=== PATIENT | female | born 1945 | race Caucasian/White ===

== ENCOUNTER 2017-09-23 15:20 | Emergency (ER) | payer OTHER ==
[~2017-09-23] VITALS: Ht 152.4 cm; Wt 55.0 kg
[~2017-09-23 15:20] MED LIST: CARV3.125 PO; ISOS30TA17 PO; KCL20 PO; LISI5 PO; PRAV10 PO
[2017-09-23 15:22] VITALS: BP 163/72; PULSE 82; RESP 18; TEMP 98; O2SAT 97
[2017-09-23] MEDS ORDERED: PRAV10TA PO (15:48)
[2017-09-23] MEDS ORDERED: POTA-163 PO (15:48)
[2017-09-23] MEDS ORDERED: LISI-519 PO (15:48)
[2017-09-23] MEDS ORDERED: ISOS30TA17 PO (15:48)
[2017-09-23] MEDS ORDERED: CARV3.12 PO (15:48)
--- NOTE | 2017-09-23 17:06 | RADRPT ---
EXAM DATE/TIME: 09/23/2017 16:38 [facility] COMPARISON: CHEST SINGLE AP, March 26, 2015, 5:43. INDICATIONS : Cough and flu like symptoms. MEDICAL HISTORY : None. SURGICAL HISTORY : None. ENCOUNTER: Initial ACUITY: 3 days PAIN SCORE: 0/10 LOCATION: Bilateral chest FINDINGS: A single view of the chest demonstrates the lungs to be symmetrically aerated without evidence of mas s, infiltrate or effusion. The cardiomediastinal contours are unremarkable. Osseous structures are intact. CONCLUSION: No acute disease. Eric Ricardo MD on September 23, 2017 at 17:04 Board Certified Radiologist. This report was verified electronically.
[2017-09-23 17:10] LABS: AMORPHOUS SEDIMENT, URINE RARE; BACTERIA, URINE RARE /hpf; BILIRUBIN, URINE NEG (NEG); BLOOD, URINE NEG (NEG); GLUCOSE,URINE NEG (NEG); KETONE, URINE NEG (NEG); NITRITE,URINE NEG (NEG); PH, URINE 6.5 (5.0-8.5); SQUAMOUS EPITHELIAL CELL URINE 1 /hpf (0-5); URINE COLOR LIGHT-YELLOW (YELLW/STRAW); URINE LEUKOCYTE ESTERASE LARGE (NEG)
[2017-09-23 17:12] LABS: AUTOMATED NEUTROPHIL # 1.8 TH/MM3 (1.8-7.7); BASOPHIL % 0.6 % (0.0-2.0); EOSINOPHIL # 0.3 TH/MM3 (0-0.4); EOSINOPHIL % 5.1 % (0.0-4.0); HEMATOCRIT 32.8 % (35.0-46.0); LYMPH % 48.4 % (9.0-44.0); LYMPHOCYTE # 2.4 TH/MM3 (1.0-4.8); MEAN CELL VOLUME 84.7 FL (80.0-100.0); MEAN CORPUSCULAR HEMOGLOBIN 28.5 PG (27.0-34.0); MEAN CORPUSCULAR HGB CONC 33.6 % (32.0-36.0); MONO % 9.8 % (0.0-8.0); MONOCYTE # 0.5 TH/MM3 (0-0.9); NEUT % 36.1 % (16.0-70.0); PLATELET COUNT 188 TH/MM3 (150-450); RED BLOOD COUNT 3.87 MIL/MM3 (4.00-5.30); RED CELL DISTRIBUTION WIDTH 14.2 % (11.6-17.2)
[2017-09-23 17:29] LABS: BICARBONATE 26.8 MEQ/L (21.0-32.0); BLOOD UREA NITROGEN 16 MG/DL (7-18); CALCIUM 8.5 MG/DL (8.5-10.1); CHLORIDE 109 MEQ/L (98-107); CREATININE 0.75 MG/DL (0.50-1.00); GLOMERULAR FILTRATION RATE 76 ML/MIN (>89); GLUCOSE,RANDOM 93 MG/DL (74-106); SODIUM (NA) 142 MEQ/L (136-145)
[2017-09-23 17:34] LABS: TROPONIN I LESS THAN 0.02 NG/ML (0.02-0.05)
[2017-09-23] MEDS ORDERED: BACT800T5 PO (18:56)
--- NOTE | 2017-09-23 18:58 | PD ---
HPI Chief Complaint: Respiratory Symptoms Time Seen by Provider: 16:22 Travel History International Travel<30 days: No Contact w/Intl Traveler<30days: No Traveled to known affect area: No History of Present Illness HPI 72-year-old female patient presents emergency department for evaluation of cough and nasal congestion 1 week. Patient states the cough is not productive. Patient denies any fever, chills, malaise. Patient states she thinks she might have the flu. She presents to the emergency department with her who is here for similar complaints. They have family visiting from [place] pending stay may have gotten them sick. Patient denies any abdominal pain, nausea, vomiting, diarrhea. PFSH Past Medical History Asthma: No Blood Disorders: No Anxiety: No Depression: No Heart Rhythm Problems: No Cancer: No Cardiomyopathy: Yes (LEAKY VALVE) Cardiovascular Problems: Yes High Cholesterol: Yes Chemotherapy: No Chest Pain: No Congestive Heart Failure: No COPD: No Diabetes: No Diminished Hearing: No Endocrine: No Genitourinary: No Immune Disorder: No Musculoskeletal: No Neurologic: Yes Psychiatric: No Reproductive: No Respiratory: No Immunizations Current: Yes Radiation Therapy: No Sleep Apnea: No Thyroid Disease: No Menopausal: Yes Past Surgical History Section: Yes (X3) Social History Alcohol Use: No Tobacco Use: No Substance Use: No Allergies-Medications (Allergen,Severity, Reaction): Coded Allergies: No Known Allergies (Unverified Adverse Reaction, Unknown, 09/23/17) Reported Meds & Prescriptions Reported Meds & Active Scripts Active Bactrim DS (Sulfamethoxazole-Trimethoprim) 800-160 Mg Tab 1 Tab PO BID 7 Days Reported Potassium Chloride ER (Potassium Chloride) 20 Meq Tab 20 Meq PO DAILY Pravastatin 10 Mg Tab 10 Mg PO DAILY Lisinopril 5 Mg Tab 5 Mg PO DAILY Isosorbide Dinitrate 30 Mg Tab 30 Mg PO DAILY Carvedilol 3.125 Mg Tab 3.125 Mg PO BID Review of Systems Except as stated in HPI: all other systems reviewed are Neg Physical Exam Narrative GENERAL: Well-nourished, well-developed 72-year-old female patient in no acute distress. Nontoxic appearing. SKIN: Focused skin assessment warm/dry. HEAD: Normocephalic. Atraumatic EYES: No scleral icterus. No injection or drainage. NECK: Supple, trachea midline. No JVD or lymphadenopathy. CARDIOVASCULAR: Regular rate and rhythm without murmurs, gallops, or rubs. RESPIRATORY: Breath sounds equal bilaterally. No accessory muscle use. GASTROINTESTINAL: Abdomen soft, non-tender, nondistended. MUSCULOSKELETAL: No cyanosis, or edema. BACK: Nontender without obvious deformity. No CVA tenderness. Data Data Last Documented VS Vital Signs Date Time Temp Pulse Resp B/P (MAP) Pulse Ox O2 Delivery O2 Flow Rate FiO2 09/23/17 19:15 09/23/17 16:44 Room Air 09/23/17 15:41 18 09/23/17 15:22 98.0 82 97 Orders Orders Complete Blood Count With Diff (09/23/17 16:22) Basic Metabolic Panel (Bmp) (09/23/17 16:22) Ckmb (Isoenzyme) Profile (09/23/17 16:22) Troponin I (09/23/17 16:22) Urinalysis - C+S If Indicated (09/23/17 16:22) Influenzae A/B Antigen (09/23/17 16:22) Iv Access Insert/Monitor (09/23/17 16:22) Electrocardiogram (09/23/17 16:22) Ecg Monitoring (09/23/17 16:22) Oximetry (09/23/17 16:22) Chest, Single Ap (09/23/17 16:22) Urine Culture (09/23/17 16:00) CKMB (09/23/17 16:40) CKMB% (09/23/17 16:40) Ed Discharge Order (09/23/17 18:58) Labs Laboratory Tests Test 09/23/17 16:00 09/23/17 16:40 Urine Color LIGHT-YELLOW Urine Turbidity CLEAR Urine pH 6.5 Urine Specific [place] 1.012 Urine Protein NEG mg/dL Urine Glucose (UA) NEG mg/dL Urine Ketones NEG mg/dL Urine Occult Blood NEG Urine Nitrite NEG Urine Bilirubin NEG Urine Urobilinogen LESS THAN 2.0 MG/DL Urine Leukocyte Esterase LARGE Urine RBC 1 /hpf Urine WBC 21 /hpf Urine Squamous Epithelial Cells 1 /hpf Urine Amorphous Sediment RARE Urine Bacteria RARE /hpf Microscopic Urinalysis Comment CULTURE INDICATED White Blood Count 5.0 TH/MM3 Red Blood Count 3.87 MIL/MM3 Hemoglobin 11.0 GM/DL Hematocrit 32.8 % Mean Corpuscular Volume 84.7 FL Mean Corpuscular Hemoglobin 28.5 PG Mean Corpuscular Hemoglobin Concent 33.6 % Red Cell Distribution Width 14.2 % Platelet Count 188 TH/MM3 Mean Platelet Volume 10.0 FL Neutrophils (%) (Auto) 36.1 % Lymphocytes (%) (Auto) 48.4 % Monocytes (%) (Auto) 9.8 % Eosinophils (%) (Auto) 5.1 % Basophils (%) (Auto) 0.6 % Neutrophils # (Auto) 1.8 TH/MM3 Lymphocytes # (Auto) 2.4 TH/MM3 Monocytes # (Auto) 0.5 TH/MM3 Eosinophils # (Auto) 0.3 TH/MM3 Basophils # (Auto) 0.0 TH/MM3 CBC Comment DIFF FINAL Differential Comment Blood Urea Nitrogen 16 MG/DL Creatinine 0.75 MG/DL Random Glucose 93 MG/DL Calcium Level 8.5 MG/DL Sodium Level 142 MEQ/L Potassium Level 4.2 MEQ/L Chloride Level 109 MEQ/L Carbon Dioxide Level 26.8 MEQ/L Anion Gap 6 MEQ/L Estimat Glomerular Filtration Rate 76 ML/MIN Total Creatine Kinase 178 U/L Creatine Kinase MB 1.4 NG/ML Troponin I LESS THAN 0.02 NG/ML MDM Medical Decision Making Medical Screen Exam Complete: Yes Emergency Medical Condition: Yes Differential Diagnosis Differential diagnoses include but are not limited to influenza, viral syndrome , pharyngitis, pneumonia, UTI Narrative Course Patient placed on monitor, IV obtained and blood work sent to lab. CBC, BMP, troponin, CK MB UA, influenza ordered and pending. 12-lead EKG ordered and pending. Chest x-ray ordered and pending. Blood work shows no acute abnormality. Chest x-ray shows no acute disease. Twelve-lead EKG sinus rhythm. Influenza is negative. Urinalysis shows WBCs, high bacteria, leukocyte esterase. Patient discharged home with prescription for Bactrim for urinary tract infection. Patient given instructions to return the emergency Department with any worsening condition but otherwise follow-up with primary care. Diagnosis Primary Impression: UTI (urinary tract infection) Qualified Codes: N39.0 - Urinary tract infection, site not specified Referrals: Primary Care Physician Patient Instructions: General Instructions, Urinary Tract Infection in Women ( [place]) Additional Instructions: Please return to emergency department if your symptoms return or worsen. Follow up with your primary care provider. Take medications as prescribed. Stay hydrated Alternate ibuprofen and Tylenol as needed for pain or fever. Med/Other Pt SpecificInfo: Prescription(s) given Scripts Sulfamethoxazole-Trimethoprim (Bactrim DS) 800-160 Mg Tab 1 TAB PO BID for Infection for 7 Days, #14 TAB 0 Refills Prov: Emma Schuster 09/23/17 Disposition: 01 DISCHARGE HOME Condition: Stable Emma Schuster Sep 23, 2017 18:57
--- NOTE | 2017-09-25 12:12 | EKG ---
Date Performed: 09/23/2017 Time Performed: 17:07:59 PTAGE: 72 years EKG: Sinus rhythm LEFT BUNDLE BRANCH BLOCK ABNORMAL ECG PREVIOUS TRACING : 03/26/2015 17.37 DOCTOR: Glendy Hays Interpretating Date/Time 09/25/2017 12:12:08
== END 2017-09-23 19:28 | disposition home or self-care (01) ==
LOC: NEPC 15:20
DX: N39.0 Urinary tract infection, site not specified (principal); B96.89 Other specified bacterial agents as the cause of diseases classified elsewhere; R05 Cough; R94.31 Abnormal electrocardiogram [ECG] [EKG]; E78.00 Pure hypercholesterolemia, unspecified
CPT/HCPCS: 71010; 80048; 81001; 82550; 82552; 84484; 85025; 87086; 87804; 93005; 99285

== ENCOUNTER 2018-02-05 10:49 | Emergency (ER) | payer OTHER ==
[~2018-02-05] VITALS: Ht 144.8 cm; Wt 60.0 kg
[~2018-02-05 10:49] MED LIST changes: +BACT800T5 PO; +CARV3.12 PO; -CARV3.125 PO; -KCL20 PO; +LISI-519 PO; -LISI5 PO; +POTA-163 PO; -PRAV10 PO; +PRAV10TA PO
[2018-02-05 10:51] VITALS: BP 165/77; PULSE 79; RESP 16; TEMP 98.4; O2SAT 99
[2018-02-05] MEDS ORDERED: ONDANSETRON HCL 4 MG/2 ML VIAL IV PUSH ONE (11:30)
[2018-02-05] MEDS ORDERED: MECLIZINE HCL 25 MG TAB PO ONE (11:30)
--- NOTE | 2018-02-05 11:33 | PD ---
HPI Chief Complaint: Dizziness Time Seen by Provider: 11:11 Travel History International Travel<30 days: No Contact w/Intl Traveler<30days: No Traveled to known affect area: No History of Present Illness HPI 73-year-old female that presents to the ED for evaluation of dizziness and nausea. Patient states that she had this today. Per patient she woke up today at her normal breakfast and went to pray when he laid her head down to pressure started feeling like the room was spinning and she started throwing up. She has been having that ever since. She has had this for at least 2-3 hours. Per patient she feels nauseous but not vomiting anymore. Per patient currently she has no pain. Per patient she is never had any pain. No blurred vision or double vision. No headache. No chest pain or shortness of breath. No abdominal pain. Per patient she has questions what she took something yesterday might upset her stomach. Denies any history of this in the past. She does have a history of heart disease as well as CHF. No palpitations. No allergies to medication. Per patient no blood when she vomits. She came here by private vehicle. Denies any falls or injuries. Per patient symptoms appear to be positional and currently appeared to be improve as she feels nauseous but she has nothing else to throw up. PFSH Past Medical History Asthma: No Blood Disorders: No Anxiety: No Depression: No Heart Rhythm Problems: No Cancer: No Cardiomyopathy: Yes (LEAKY VALVE) Cardiovascular Problems: Yes High Cholesterol: Yes Chemotherapy: No Chest Pain: No Congestive Heart Failure: No COPD: No Diabetes: No Diminished Hearing: No Endocrine: No Genitourinary: No Immune Disorder: No Musculoskeletal: No Neurologic: Yes Psychiatric: No Reproductive: No Respiratory: No Immunizations Current: Yes Radiation Therapy: No Sleep Apnea: No Thyroid Disease: No Menopausal: Yes Past Surgical History Section: Yes (X3) Social History Alcohol Use: No Tobacco Use: No Substance Use: No Allergies-Medications (Allergen,Severity, Reaction): Coded Allergies: No Known Allergies (Unverified Adverse Reaction, Unknown, 02/05/18) Reported Meds & Prescriptions Reported Meds & Active Scripts Active Meclizine (Meclizine HCl) 25 Mg Tab 25 Mg PO TID PRN Ativan (Lorazepam) 0.5 Mg Tab 0.5 Mg PO Q6H PRN Reported Atorvastatin (Atorvastatin Calcium) 80 Mg Tab 80 Mg PO HS Gabapentin 300 Mg Cap 300 Mg PO BID Furosemide 40 Mg Tab 40 Mg PO DAILY Isosorbide Mononitrate ER (Isosorbide Mononitrate) 30 Mg Annie 30 Mg PO DAILY Potassium Chloride ER (Potassium Chloride) 20 Meq Tab 20 Meq PO DAILY Lisinopril 5 Mg Tab 2.5 Mg PO DAILY Carvedilol 3.125 Mg Tab 3.125 Mg PO BID Review of Systems Except as stated in HPI: all other systems reviewed are Neg Physical Exam Narrative GENERAL: SKIN: Warm and dry. HEAD: Atraumatic. Normocephalic. EYES: Pupils equal and round. No scleral icterus. No injection or drainage. ENT: No nasal bleeding or discharge. Mucous membranes pink and moist. Tongue is midline. No uvula deviation. NECK: Trachea midline. No JVD. CARDIOVASCULAR: Regular rate and rhythm. No murmurs, S3, S4. RESPIRATORY: No accessory muscle use. Clear to auscultation. Breath sounds equal bilaterally. GASTROINTESTINAL: Abdomen soft, non-tender, nondistended. Hepatic and splenic margins not palpable. MUSCULOSKELETAL: Extremities without clubbing, cyanosis, or edema. No obvious deformities. Full range of motion of the upper and lower extremities bilaterally. 2+ pulses bilaterally. NEUROLOGICAL: Awake and alert. No obvious cranial nerve deficits. Motor grossly within normal limits. Five out of 5 muscle strength in the arms and legs. Normal speech. PSYCHIATRIC: Appropriate mood and affect; insight and judgment normal. Data Data Last Documented VS Vital Signs Date Time Temp Pulse Resp B/P (MAP) Pulse Ox O2 Delivery O2 Flow Rate FiO2 02/05/18 13:10 62 12 139/64 (89) 72 21 165/80 (108) 73 19 156/74 (101) 02/05/18 10:51 98.4 99 Orders Orders Electrocardiogram (02/05/18 11:19) Complete Blood Count With Diff (02/05/18 11:19) Comprehensive Metabolic Panel (02/05/18 11:19) Ckmb (Isoenzyme) Profile (02/05/18 11:19) Troponin I (02/05/18 11:19) Lipase (02/05/18 11:19) Urinalysis - C+S If Indicated (02/05/18 11:19) Magnesium (Mg) (02/05/18 11:19) Thyroid Stimulating Hormone (02/05/18 11:19) Chest, Single Ap (02/05/18 11:19) Ct Brain W/O Iv Contrast(Rout) (02/05/18 11:19) Iv Access Insert/Monitor (02/05/18 11:19) Ecg Monitoring (02/05/18 11:19) Oximetry (02/05/18 11:19) Orthostatic Vital Signs (02/05/18 11:19) Ondansetron Inj (Zofran Inj) (02/05/18 11:30) Meclizine (Antivert) (02/05/18 11:30) Lorazepam Inj (Ativan Inj) (02/05/18 13:30) CKMB (02/05/18 12:40) CKMB% (02/05/18 12:40) Ed Discharge Order (02/05/18 14:43) Ed Discharge Order (02/05/18 14:44) Labs Laboratory Tests Test 02/05/18 11:12 02/05/18 12:40 02/05/18 12:45 White Blood Count 6.5 TH/MM3 Red Blood Count 4.59 MIL/MM3 Hemoglobin 12.8 GM/DL Hematocrit 38.0 % Mean Corpuscular Volume 82.6 FL Mean Corpuscular Hemoglobin 27.9 PG Mean Corpuscular Hemoglobin Concent 33.7 % Red Cell Distribution Width 15.9 % Platelet Count 323 TH/MM3 Mean Platelet Volume 10.0 FL Neutrophils (%) (Auto) 82.1 % Lymphocytes (%) (Auto) 12.4 % Monocytes (%) (Auto) 3.7 % Eosinophils (%) (Auto) 1.4 % Basophils (%) (Auto) 0.4 % Neutrophils # (Auto) 5.4 TH/MM3 Lymphocytes # (Auto) 0.8 TH/MM3 Monocytes # (Auto) 0.2 TH/MM3 Eosinophils # (Auto) 0.1 TH/MM3 Basophils # (Auto) 0.0 TH/MM3 CBC Comment AUTO DIFF Differential Comment AUTO DIFF CONFIRMED Ovalocytes 1+ Blood Urea Nitrogen 20 MG/DL Creatinine 0.68 MG/DL Random Glucose 110 MG/DL Total Protein 7.6 GM/DL Albumin 3.6 GM/DL Calcium Level 8.3 MG/DL Magnesium Level 2.2 MG/DL Alkaline Phosphatase 96 U/L Aspartate Amino Transf (AST/SGOT) 39 U/L Alanine Aminotransferase (ALT/SGPT) 46 U/L Total Bilirubin 0.5 MG/DL Sodium Level 141 MEQ/L Potassium Level 4.3 MEQ/L Chloride Level 108 MEQ/L Carbon Dioxide Level 26.4 MEQ/L Anion Gap 7 MEQ/L Estimat Glomerular Filtration Rate 85 ML/MIN Total Creatine Kinase 146 U/L Creatine Kinase MB 0.9 NG/ML Troponin I LESS THAN 0.02 NG/ML Lipase 109 U/L Thyroid Stimulating Hormone 3rd Gen 0.638 uIU/ML Urine Color YELLOW Urine Turbidity HAZY Urine pH 6.0 Urine Specific [place] 1.029 Urine Protein 30 mg/dL Urine Glucose (UA) NEG mg/dL Urine Ketones TRACE mg/dL Urine Occult Blood NEG Urine Nitrite NEG Urine Bilirubin NEG Urine Urobilinogen LESS THAN 2.0 MG/DL Urine Leukocyte Esterase TRACE Urine RBC 2 /hpf Urine WBC 4 /hpf Urine Squamous Epithelial Cells 1 /hpf Urine Transitional Epithelial Cells <1 /hpf Urine Hyaline Casts 2 /lpf Urine Mucus MANY /lpf Microscopic Urinalysis Comment CULT NOT INDICATED MDM Medical Decision Making Medical Screen Exam Complete: Yes Emergency Medical Condition: Yes Medical Record Reviewed: Yes Interpretation(s) CBC & BMP Diagram 02/05/18 11:12 02/05/18 12:40 Total Protein 7.6, Albumin 3.6, Calcium Level 8.3 L, Magnesium Level 2.2, Alkaline Phosphatase 96, Aspartate Amino Transf (AST/SGOT) 39 H, Alanine Aminotransferase (ALT/SGPT) 46, Total Bilirubin 0.5 EKG shows sinus rhythm with no sign of acute ischemia or arrhythmia other than a LBBB that is old from previous records. Unchanged. Read by me and attending. CK-MB and troponin negative. Urine negative. Last Impressions Head CT 02/05/18 111 Signed Impressions: Service Date/Time: Monday, February 05, 2018 11:33 - CONCLUSION: Normal examination. Chris Neves MD Chest X-Ray 02/05/18 1119 Signed Impressions: Service Date/Time: Monday, February 05, 2018 12:05 - CONCLUSION: Normal examination. Chris Neves MD Differential Diagnosis Syncope versus presyncope versus dizziness versus lightheadedness versus cardiac syncope versus ACS versus stroke versus vertigo versus positional vertigo Narrative Course 73-year-old female that presents to the ED for evaluation of dizziness and nausea. Patient was probably examined and was found to have signs and symptoms consistent appears to be more likely vertigo. Patient does have significant history of heart disease because of her age and recommend labs and imaging. Patient was given Zofran IV and meclizine to see if this will help with symptoms. Labs and imaging showed no sign of acute disease. Patient had improvement of symptoms with the medications given. Patient still somewhat nauseous with standing. Orthostatics are normal. Patient was given 0.5 of [address]. My attending Dr. Hughes evaluated the patient and agrees with discharge. Patient will be discharged with prescriptions for Ativan and meclizine. Told to follow-up closely with PCP. See ED if worsening symptoms. Diagnosis Primary Impression: Vertigo Patient Instructions: General Instructions Additional Instructions: Take medications as prescribed. Follow-up with PCP. See ED if worsening symptoms. Med/Other Pt SpecificInfo: Prescription(s) given Scripts Meclizine (Meclizine) 25 Mg Tab 25 MG PO TID Y for VERTIGO, #15 TAB 0 Refills Prov: Eliel Hughes MD 02/05/18 Lorazepam (Ativan) 0.5 Mg Tab 0.5 MG PO Q6H Y for ANXIETY AND/OR AGITATION, #6 TAB 0 Refills Prov: Eliel Hughes MD 02/05/18 Disposition: 01 DISCHARGE HOME Condition: Stable Preston Sesay Feb 05, 2018 11:33
--- NOTE | 2018-02-05 11:48 | RADRPT ---
EXAM DATE/TIME: 02/05/2018 11:33 [facility] COMPARISON: No previous studies available for comparison. INDICATIONS : Dizziness and nausea today. RADIATION DOSE: 34.43 CTDIvol (mGy) MEDICAL HISTORY : Cardiovascular disease. SURGICAL HISTORY : None. ENCOUNTER: Initial ACUITY: 1 day PAIN SCALE: 0/10 LOCATION: Bilateral head TECHNIQUE: Multiple contiguous axial images were obtained of the head. Using automated exposure control and adj ustment of the mA and/or kV according to patient size, radiation dose was kept as low as reasonably a chievable to obtain optimal diagnostic quality images. DICOM format image data is available electro nically for review and comparison. FINDINGS: CEREBRUM: The ventricles are normal for age. No evidence of midline shift, mass lesion, hemorrhage or acute in farction. No extra-axial fluid collections are seen. POSTERIOR FOSSA: The cerebellum and brainstem are intact. The 4th ventricle is midline. The cerebellopontine angle i s unremarkable. EXTRACRANIAL: The visualized portion of the orbits is intact. SKULL: The calvaria is intact. No evidence of skull fracture. CONCLUSION: Normal examination. Chris Neves MD on February 05, 2018 at 11:45 Board Certified Radiologist. This report was verified electronically.
[2018-02-05 11:56] LABS: AUTOMATED NEUTROPHIL # 5.4 TH/MM3 (1.8-7.7); BASOPHIL % 0.4 % (0.0-2.0); EOSINOPHIL # 0.1 TH/MM3 (0-0.4); EOSINOPHIL % 1.4 % (0.0-4.0); HEMOGLOBIN 12.8 GM/DL (11.6-15.3); LYMPH % 12.4 % (9.0-44.0); LYMPHOCYTE # 0.8 TH/MM3 (1.0-4.8); MEAN CELL VOLUME 82.6 FL (80.0-100.0); MEAN CORPUSCULAR HEMOGLOBIN 27.9 PG (27.0-34.0); MEAN CORPUSCULAR HGB CONC 33.7 % (32.0-36.0); MONO % 3.7 % (0.0-8.0); MONOCYTE # 0.2 TH/MM3 (0-0.9); NEUT % 82.1 % (16.0-70.0); PLATELET COUNT 323 TH/MM3 (150-450); RED BLOOD COUNT 4.59 MIL/MM3 (4.00-5.30); RED CELL DISTRIBUTION WIDTH 15.9 % (11.6-17.2); WHITE BLOOD COUNT 6.5 TH/MM3 (4.0-11.0)
[2018-02-05] MEDS ORDERED: GABA300C5 PO (12:14)
[2018-02-05] MEDS ORDERED: ATOR80TA45 PO (12:14)
[2018-02-05] MEDS ORDERED: FURO40TA PO (12:14)
[2018-02-05] MEDS ORDERED: ISOS30TA3 PO (12:14)
[2018-02-05 12:23] LABS: OVALOCYTES 1+ (NORMAL)
--- NOTE | 2018-02-05 12:24 | RADRPT ---
EXAM DATE/TIME: 02/05/2018 12:05 [facility] COMPARISON: CHEST SINGLE AP, September 23, 2017, 16:38. INDICATIONS : Syncope. Dizziness with nausea. MEDICAL HISTORY : Cardiovascular disease. SURGICAL HISTORY : None. ENCOUNTER: Initial ACUITY: 1 day PAIN SCORE: 0/10 LOCATION: Bilateral chest FINDINGS: A single view of the chest demonstrates the lungs to be symmetrically aerated without evidence of mas s, infiltrate or effusion. The cardiomediastinal contours are unremarkable. Osseous structures are intact. CONCLUSION: Normal examination. Chris Neves MD on February 05, 2018 at 12:21 Board Certified Radiologist. This report was verified electronically.
[2018-02-05 13:10] VITALS: BP_SYST 139; BP_SYST 156; BP_SYST 165; BP_DIAS 64; BP_DIAS 74; BP_DIAS 80; RESP 12; RESP 19; RESP 21
[2018-02-05] MEDS ORDERED: LORazepam 2 MG/ML VIAL IV PUSH ONE (13:30)
[2018-02-05 13:45] LABS: BILIRUBIN, URINE NEG (NEG); BLOOD, URINE NEG (NEG); GLUCOSE,URINE NEG (NEG); HYALINE CAST, URINE 2 /lpf (RARE); KETONE, URINE TRACE mg/dL (NEG); MUCUS URINE MANY /lpf (OCC); NITRITE,URINE NEG (NEG); SQUAMOUS EPITHELIAL CELL URINE 1 /hpf (0-5); TRANSITIONAL EPI CELLS, URINE <1 /hpf; URINE COLOR YELLOW (YELLW/STRAW); URINE LEUKOCYTE ESTERASE TRACE (NEG)
[2018-02-05 13:53] LABS: ALBUMIN 3.6 GM/DL (3.4-5.0); ALT (GPT) 46 U/L (10-53); AST (GOT) 39 U/L (15-37); BICARBONATE 26.4 MEQ/L (21.0-32.0); BLOOD UREA NITROGEN 20 MG/DL (7-18); CALCIUM 8.3 MG/DL (8.5-10.1); CHLORIDE 108 MEQ/L (98-107); CREATININE 0.68 MG/DL (0.50-1.00); GLOMERULAR FILTRATION RATE 85 ML/MIN (>89); GLUCOSE,RANDOM 110 MG/DL (74-106); MAGNESIUM 2.2 MG/DL (1.5-2.5); SODIUM (NA) 141 MEQ/L (136-145)
[2018-02-05 14:02] LABS: ALKALINE PHOSPHATASE 96 U/L (45-117); TOTAL BILIRUBIN ADULT 0.5 MG/DL (0.2-1.0); TOTAL PROTEIN 7.6 GM/DL (6.4-8.2); TROPONIN I LESS THAN 0.02 NG/ML (0.02-0.05)
[2018-02-05] MEDS ORDERED: LORA-392 PO ×2 (14:44→14:48)
[2018-02-05] MEDS ORDERED: MECL-62 PO (14:44)
--- NOTE | 2018-02-05 14:46 | PD ---
Data Data Last Documented VS Vital Signs Date Time Temp Pulse Resp B/P (MAP) Pulse Ox O2 Delivery O2 Flow Rate FiO2 02/05/18 13:10 62 12 139/64 (89) 72 21 165/80 (108) 73 19 156/74 (101) 02/05/18 10:51 98.4 99 Orders Orders Electrocardiogram (02/05/18 11:19) Complete Blood Count With Diff (02/05/18 11:19) Comprehensive Metabolic Panel (02/05/18 11:19) Ckmb (Isoenzyme) Profile (02/05/18 11:19) Troponin I (02/05/18 11:19) Lipase (02/05/18 11:19) Urinalysis - C+S If Indicated (02/05/18 11:19) Magnesium (Mg) (02/05/18 11:19) Thyroid Stimulating Hormone (02/05/18 11:19) Chest, Single Ap (02/05/18 11:19) Ct Brain W/O Iv Contrast(Rout) (02/05/18 11:19) Iv Access Insert/Monitor (02/05/18 11:19) Ecg Monitoring (02/05/18 11:19) Oximetry (02/05/18 11:19) Orthostatic Vital Signs (02/05/18 11:19) Ondansetron Inj (Zofran Inj) (02/05/18 11:30) Meclizine (Antivert) (02/05/18 11:30) Lorazepam Inj (Ativan Inj) (02/05/18 13:30) CKMB (02/05/18 12:40) CKMB% (02/05/18 12:40) Ed Discharge Order (02/05/18 14:43) Labs Laboratory Tests Test 02/05/18 11:12 02/05/18 12:40 02/05/18 12:45 White Blood Count 6.5 TH/MM3 Red Blood Count 4.59 MIL/MM3 Hemoglobin 12.8 GM/DL Hematocrit 38.0 % Mean Corpuscular Volume 82.6 FL Mean Corpuscular Hemoglobin 27.9 PG Mean Corpuscular Hemoglobin Concent 33.7 % Red Cell Distribution Width 15.9 % Platelet Count 323 TH/MM3 Mean Platelet Volume 10.0 FL Neutrophils (%) (Auto) 82.1 % Lymphocytes (%) (Auto) 12.4 % Monocytes (%) (Auto) 3.7 % Eosinophils (%) (Auto) 1.4 % Basophils (%) (Auto) 0.4 % Neutrophils # (Auto) 5.4 TH/MM3 Lymphocytes # (Auto) 0.8 TH/MM3 Monocytes # (Auto) 0.2 TH/MM3 Eosinophils # (Auto) 0.1 TH/MM3 Basophils # (Auto) 0.0 TH/MM3 CBC Comment AUTO DIFF Differential Comment AUTO DIFF CONFIRMED Ovalocytes 1+ Blood Urea Nitrogen 20 MG/DL Creatinine 0.68 MG/DL Random Glucose 110 MG/DL Total Protein 7.6 GM/DL Albumin 3.6 GM/DL Calcium Level 8.3 MG/DL Magnesium Level 2.2 MG/DL Alkaline Phosphatase 96 U/L Aspartate Amino Transf (AST/SGOT) 39 U/L Alanine Aminotransferase (ALT/SGPT) 46 U/L Total Bilirubin 0.5 MG/DL Sodium Level 141 MEQ/L Potassium Level 4.3 MEQ/L Chloride Level 108 MEQ/L Carbon Dioxide Level 26.4 MEQ/L Anion Gap 7 MEQ/L Estimat Glomerular Filtration Rate 85 ML/MIN Total Creatine Kinase 146 U/L Creatine Kinase MB 0.9 NG/ML Troponin I LESS THAN 0.02 NG/ML Lipase 109 U/L Thyroid Stimulating Hormone 3rd Gen 0.638 uIU/ML Urine Color YELLOW Urine Turbidity HAZY Urine pH 6.0 Urine Specific [place] 1.029 Urine Protein 30 mg/dL Urine Glucose (UA) NEG mg/dL Urine Ketones TRACE mg/dL Urine Occult Blood NEG Urine Nitrite NEG Urine Bilirubin NEG Urine Urobilinogen LESS THAN 2.0 MG/DL Urine Leukocyte Esterase TRACE Urine RBC 2 /hpf Urine WBC 4 /hpf Urine Squamous Epithelial Cells 1 /hpf Urine Transitional Epithelial Cells <1 /hpf Urine Hyaline Casts 2 /lpf Urine Mucus MANY /lpf Microscopic Urinalysis Comment CULT NOT INDICATED MDM Medical Record Reviewed: Yes Supervised Visit with KRISTINA: Yes Narrative Course I, Dr. Hughes, have reviewed the advance practice practitioner's documentation and am in agreement, met with the patient face to face, made the diagnosis, and the medical decision making was done by me. *My assessment and Findings: Patient has vertigo. She has been weeding in the high noon sun on evidently for hours on end. Work up reviewed. Scripts as below. Scripts Meclizine (Meclizine) 25 Mg Tab 25 MG PO TID Y for VERTIGO, #15 TAB 0 Refills Prov: Eliel Hughes MD 02/05/18 Lorazepam (Ativan) 0.5 Mg Tab 0.5 MG PO Q6H Y for ANXIETY AND/OR AGITATION, #6 TAB 0 Refills Prov: Eliel Hughes MD 02/05/18 Eliel Hughes MD Feb 05, 2018 14:46
--- NOTE | 2018-02-06 00:24 | EKG ---
Date Performed: 02/05/2018 Time Performed: 12:11:18 PTAGE: 73 years EKG: Sinus rhythm LEFT BUNDLE BRANCH BLOCK ABNORMAL ECG Since the PREVIOUS TRACING , no significant change noted DOCTOR: Fan Hughes Interpretating Date/Time 02/06/2018 00:22:48
== END 2018-02-05 15:29 | disposition home or self-care (01) ==
LOC: NEPE 10:49
DX: R42 Dizziness and giddiness (principal); R11.0 Nausea; E78.00 Pure hypercholesterolemia, unspecified; R94.31 Abnormal electrocardiogram [ECG] [EKG]
CPT/HCPCS: 70450; 71045; 80053; 81001; 82550; 82552; 83690; 83735; 84443; 84484; 85025; 93005; 96374; 96375; 99285; J2060; J2405